=== PATIENT | female | born 1945 | race Caucasian/White ===

== ENCOUNTER → 2016-12-10 | Outpatient (CLI) | payer BC ==
[~2016-12-10] MED LIST: ASPCH81 PO; ATEN-173 PO; BRIN1SUS OP; CALC600T9 PO; CHOL200010 PO; CHOL4POW6 PO; CRAN500C2 PO; CRS/10 PO; HYDR25TA4 PO; LEVO50TA PO; NORT10CA3 PO; OMEP20CA9 PO
--- NOTE | 2016-12-10 14:27 | MAMMOGRAPHY REPORT ---
BILATERAL DIGITAL SCREENING MAMMOGRAM WITH CAD: 12/10/2016 CLINICAL HISTORY: Routine screening. Patient has no complaints. TECHNIQUE: Bilateral CC and MLO views were obtained. Current study was also evaluated with a Comput er Aided Detection (CAD) system. COMPARISON: Comparison is made to exams dated: 11/29/2015 mammogram, 11/23/2013 mammogram, 11/24/2014 mammogram, 11/21/2012 mammogram, 11/21/2011 mammogram, and 11/20/2010 mammogram - [facility]ter. BREAST COMPOSITION: The tissue of both breasts is heterogeneously dense, which may obscure small ma sses. FINDINGS: There are benign rim calcifications, coarse popcorn calcifications and round benign-appear ing micro-calcifications scattered bilaterally. A 12 m focal asymmetry in the 11:00 posterior left breast is stable on prior mammograms dating back to at least 11/20/2010, therefore likely benign. N o new suspicious mass, architectural distortion or cluster of microcalcifications is seen. IMPRESSION: ACR BI-RADS CATEGORY 1: NEGATIVE There is no mammographic evidence of malignancy. A 1 year screening mammogram is recommended. The p atient will receive written notification of the results. Approximately 10% of breast cancers are not detected with mammography. A negative mammographic repor t should not delay biopsy if a clinically suggestive mass is present. Vickie Haley M.D. ay/:12/10/2016 13:26:12 Sales Force Administrator: Mello WELCH(Leeanne)(Ayde), [facility] letter sent: Normal 1/2 BI-RADS Code: ACR BI-RADS Category 1: Negative
== END | disposition home or self-care (01) ==
LOC: C.MAMM 09:50
PROVIDERS: ATTEND Obstetrics & Gynecology
DX: Z12.31 Encounter for screening mammogram for malignant neoplasm of breast (principal)

== ENCOUNTER → 2017-02-22 | Outpatient (CLI) | payer BC ==
[2017-02-22 12:07] LABS: ALT/SGPT 27 U/L (12-78); AST/SGOT 20 U/L (15-37); BLOOD UREA NITROGEN 24 mg/dl (7-18); BUN/CREATININE RATIO 16.8 (10-20); CALCIUM 9.2 mg/dl (8.5-10.1); CARBON DIOXIDE 30 mmol/L (21-32); CHLORIDE 108 mmol/L (98-107); GLUCOSE 96 mg/dl (70-99); POTASSIUM 4.5 mmol/L (3.5-5.1); SODIUM 145 mmol/L (136-145)
[2017-02-22 12:10] LABS: ALKALINE PHOSPHATASE 57 U/L (45-117); CHOLESTEROL 211 mg/dl (0-200); CHOLESTEROL/HDL RATIO 6.2; HDL CHOLESTEROL 34 mg/dl; LDL CHOLESTEROL CALCULATED 144 mg/dl; TRIGLYCERIDES 167 mg/dl (0-150); VERY LOW DENSITY LIPOPROT CALC 33 mg/dl
[2017-02-22 12:14] LABS: ESTIMATED AVERAGE GLUCOSE 128 mg/dl; HA1C FLAG Normal (Normal)
== END | disposition home or self-care (01) ==
LOC: C.LAB 09:36
PROVIDERS: ATTEND Nurse Practitioner Family
DX: K21.9 Gastro-esophageal reflux disease without esophagitis (principal); E78.00 Pure hypercholesterolemia, unspecified; I10 Essential (primary) hypertension; E03.9 Hypothyroidism, unspecified; F32.9 Major depressive disorder, single episode, unspecified; R73.9 Hyperglycemia, unspecified

== ENCOUNTER → 2017-03-01 | Outpatient (CLI) | payer BC ==
[2017-03-01 12:44] LABS: BLOOD UREA NITROGEN 15 mg/dl (7-18); BUN/CREATININE RATIO 11.7 (10-20); CALCIUM 9.2 mg/dl (8.5-10.1); CARBON DIOXIDE 27 mmol/L (21-32); CHLORIDE 108 mmol/L (98-107); GLUCOSE 94 mg/dl (70-99); POTASSIUM 4.4 mmol/L (3.5-5.1); SODIUM 142 mmol/L (136-145)
[2017-03-01 12:45] LABS: PHOSPHORUS 2.9 mg/dl (2.5-4.9)
== END | disposition home or self-care (01) ==
LOC: C.LAB 10:07
PROVIDERS: ATTEND Nurse Practitioner Family
DX: R79.89 Other specified abnormal findings of blood chemistry (principal)

== ENCOUNTER → 2017-04-10 | Outpatient (CLI) | payer BC ==
[2017-04-10 17:26] LABS: BLOOD UREA NITROGEN 19 mg/dl (7-18); BUN/CREATININE RATIO 15.7 (10-20); CALCIUM 8.9 mg/dl (8.5-10.1); CARBON DIOXIDE 29 mmol/L (21-32); CHLORIDE 110 mmol/L (98-107); GLUCOSE 109 mg/dl (70-99); PHOSPHORUS 3.5 mg/dl (2.5-4.9); POTASSIUM 3.9 mmol/L (3.5-5.1); SODIUM 143 mmol/L (136-145)
== END | disposition home or self-care (01) ==
LOC: C.LABPBG 14:26
PROVIDERS: ATTEND Nurse Practitioner Family
DX: R79.89 Other specified abnormal findings of blood chemistry (principal)

== ENCOUNTER → 2017-06-12 | Outpatient (CLI) | payer BC ==
--- NOTE | 2017-06-12 16:01 | DIAGNOSTIC IMAGING REPORT ---
CHEST 2 VIEWS ROUTINE CLINICAL HISTORY: R05 Cough COMPARISON STUDY: 02/02/2015 FINDINGS: The cardiac and mediastinal contours are normal. There is no evidence of focal pulmonary consolidation. There is no evidence of failure. No pleural effusions are visualized.[ There is minor right basilar subsegmental atelectasis IMPRESSION: No active disease in the chest. Electronically signed by: Jack Meyers M.D. 06/12/2017 3:59 PM Dictated Date/Time: 06/12/2017 3:59 PM
== END | disposition home or self-care (01) ==
LOC: C.RAD 15:06
PROVIDERS: ATTEND Nurse Practitioner Family
DX: R05 Cough (principal)

== ENCOUNTER → 2017-08-27 | Outpatient (CLI) | payer BC ==
[2017-08-27 11:55] LABS: BASO % 0.8 %; BASO ABS # 0.05 K/uL (0-0.2); COMPLETE YES; EOS % 3.5 %; HEMATOCRIT 44.4 % (37-47); IG% 0.2 %; LYMPH % 38.5 %; LYMPH ABS # 2.31 K/uL (1.2-3.4); MEAN CELL VOLUME 90.8 fL (80-100); MEAN CORPUSCULAR HEMOGLOBIN 29.7 pg (25-34); MEAN CORPUSCULAR HGB CONC 32.7 g/dl (32-36); MEAN PLATELET VOLUME 11.3 fL (7.4-10.4); MONO % 7.2 %; NEUT % 49.8 %; PLATELET COUNT 280 K/uL (130-400); RED BLOOD COUNT 4.89 M/uL (4.2-5.4)
[2017-08-27 12:07] LABS: ALT/SGPT 32 U/L (12-78); BLOOD UREA NITROGEN 23 mg/dl (7-18); CARBON DIOXIDE 28 mmol/L (21-32); CHLORIDE 106 mmol/L (98-107); CHOLESTEROL 166 mg/dl (0-200); CREATININE 1.13 mg/dl (0.60-1.20); GLUCOSE 109 mg/dl (70-99); POTASSIUM 3.4 mmol/L (3.5-5.1); SODIUM 141 mmol/L (136-145); TRIGLYCERIDES 133 mg/dl (0-150); VERY LOW DENSITY LIPOPROT CALC 27 mg/dl
[2017-08-27 12:18] LABS: ALKALINE PHOSPHATASE 55 U/L (45-117); AST/SGOT 20 U/L (15-37); CHOLESTEROL/HDL RATIO 3.5; HDL CHOLESTEROL 48 mg/dl; LDL CHOLESTEROL CALCULATED 91 mg/dl
== END | disposition home or self-care (01) ==
LOC: C.LABPBG 10:17
PROVIDERS: ATTEND Nurse Practitioner Family
DX: E78.00 Pure hypercholesterolemia, unspecified (principal); I10 Essential (primary) hypertension; R73.9 Hyperglycemia, unspecified; E03.9 Hypothyroidism, unspecified

== ENCOUNTER → 2017-10-07 | Outpatient (CLI) | payer BC ==
[~2017-10-07] MED LIST changes: -ASPCH81 PO; +ASPI81TA28 PO; +ATOR-22 PO; +CHOL1000 PO; -CHOL4POW6 PO; +CHOLPOW PO; -CRS/10 PO; +FENO145T26 PO; -LEVO50TA PO; +LEVO75TA5 PO; +PRED10TA PO; +ROSUVASTATIN PO
== END | disposition home or self-care (01) ==
LOC: C.LABPBG 08:54
PROVIDERS: ATTEND Nurse Practitioner Family
DX: E03.9 Hypothyroidism, unspecified (principal)

== ENCOUNTER → 2017-10-08 | Outpatient (CLI) | payer BC | END | disposition home or self-care (01) | LOC: C.LABSPEC 17:46 | PROVIDERS: ATTEND Nurse Practitioner Family | DX: R39.9 Unspecified symptoms and signs involving the genitourinary system (principal) ==

== ENCOUNTER 2017-10-31 10:38 | Inpatient (IN) | payer BC, OTHER ==
[2017-10-04 13:32] VITALS: Ht 162.6 cm; Wt 94.6 kg
--- NOTE | 2017-10-04 14:15 | PAT Medication Instructions ---
Service Date Oct 04, 2017. Current Home Medication List Aspirin (Aspirin Ec), 81 MG PO QPM Atenolol (Tenormin), 25 MG PO QAM Atorvastatin (Lipitor), 20 MG PO Q2D Brinzolamide Oph (Azopt Oph), 1 DROP OP BID Calcium Carbonate-Vitamin D (Calcium + D), 1 TAB PO QAM Cholecalciferol (Vitamin D), 2,000 UNITS PO QAM Cholecalciferol (Vitamin D3), 1 TAB PO QAM Cholestyramine (Bulk) (Cholestyramine), 1 DOSE PO QAM Cranberry (Vaccinium Macrocarp (Cranberry), 500 MG PO QAM Fenofibrate (Tricor ), 145 MG PO QPM Hydrochlorothiazide (Hctz), 12.5 MG PO QAM Levothyroxine Sodium (Levothyroxine Sodium), 1 TAB PO QAM Nortriptyline Hcl (Pamelor), 10 MG PO BID Omeprazole (Prilosec), 20 MG PO HS Prednisone (Prednisone), 10 MG PO QAM [Rosuvastatin], 1 TAB PO QPM Medication Instructions For Your Scheduled Surgery -Continue as directed: Prednisone (Prednisone), 10 MG PO QAM - Hold the following medications THE NIGHT BEFORE surgery: Fenofibrate (Tricor ), 145 MG PO QPM - Hold the following medications the morning of surgery: Hydrochlorothiazide (Hctz), 12.5 MG PO QAM Cranberry (Vaccinium Macrocarp (Cranberry), 500 MG PO QAM Calcium Carbonate-Vitamin D (Calcium + D), 1 TAB PO QAM Cholecalciferol (Vitamin D), 2,000 UNITS PO QAM Cholecalciferol (Vitamin D3), 1 TAB PO QAM Cholestyramine (Bulk) (Cholestyramine), 1 DOSE PO QAM - Take the following medications the morning of surgery with a sip of water: Levothyroxine Sodium (Levothyroxine Sodium), 1 TAB PO QAM Atenolol (Tenormin), 25 MG PO QAM Nortriptyline Hcl (Pamelor), 10 MG PO BID Brinzolamide Oph (Azopt Oph), 1 DROP OP BID (BRING THEM WITH YOU TO THE HOSPITAL ) - Take the following medications as scheduled the night before surgery: [Rosuvastatin], 1 TAB PO QPM Omeprazole (Prilosec), 20 MG PO HS Aspirin (Aspirin Ec), 81 MG PO QPM Nortriptyline Hcl (Pamelor), 10 MG PO BID Brinzolamide Oph (Azopt Oph), 1 DROP OP BID Atorvastatin (Lipitor), 20 MG PO Q2D If you have any questions please call us at [phone] or [phone] or [phone]
--- NOTE | 2017-10-04 15:10 | DIAGNOSTIC IMAGING REPORT ---
CHEST 2 VIEWS ROUTINE HISTORY: Preop. COMPARISON: Chest 06/12/2017. FINDINGS: Stable linear density within the right lung base consistent with subsegmental atelectasis. Mild elevation of the right hemidiaphragm, unchanged. The lungs are otherwise clear. The heart is normal in size. No pleural effusions. No pneumothorax. Cholecystectomy. IMPRESSION: No significant change compared to the prior study. No acute process. Electronically signed by: Derek Ordoñez M.D. 10/04/2017 3:09 PM Dictated Date/Time: 10/04/2017 3:05 PM
[2017-10-04 15:27] LABS: PTT PATIENT 20.8 SECONDS (21.0-31.0)
[2017-10-04 16:19] LABS: ALBUMIN 3.5 gm/dl (3.4-5.0); CALCIUM 9.4 mg/dl (8.5-10.1); CREATININE 1.18 mg/dl (0.60-1.20); POTASSIUM 4.7 mmol/L (3.5-5.1)
[2017-10-05 07:07] LABS: HEMOGLOBIN A1C 6.2 % (4.5-5.6)
--- NOTE | 2017-10-30 09:34 | HISTORY & PHYSICAL EXAMINATION ---
DATE OF ADMISSION: 10/31/2017 CHIEF COMPLAINT: Right knee pain. HISTORY OF PRESENT ILLNESS: The patient is a 72-year-old female with known osteoarthritis about her right knee. She has had a previous corticosteroid injection with short term relief. She had a previous left total knee arthroplasty approximately 10 years ago with good success. Due to ongoing pain and disability of the right knee, she now desires to proceed with right total knee arthroplasty. PAST MEDICAL HISTORY: Hypertension, hypercholesterolemia, depression, osteoarthritis and acid reflux. PAST SURGICAL HISTORY: Left total knee as above, rotator cuff surgery. MEDICATIONS: Nortriptyline 10 mg twice daily, fenofibrate 145 mg daily, atenolol 25 mg daily, omeprazole 20 mg daily, hydrochlorothiazide 25 mg daily, aspirin 81 mg daily, cholestyramine once daily, Levoxyl 50 mcg daily, calcium 600 mg with vitamin D. ALLERGIES: DEMEROL. SOCIAL HISTORY AND REVIEW OF SYSTEMS: Noncontributory. PHYSICAL EXAMINATION: GENERAL: Well-nourished, well-developed elderly female who appears her stated age. HEENT: Normocephalic, atraumatic, extraocular movements intact, oropharynx pink and moist. NECK: Supple without adenopathy. LUNGS: Clear to auscultation bilaterally. HEART: Regular rate and rhythm. ABDOMEN: Soft, nontender, nondistended. EXTREMITIES: The upper extremities are within normal limits. The right knee is in neutral alignment. She complains primarily of medial compartment pain. Her range of motion from 0 to 125 degrees. X-RAYS: X-rays were reviewed. She has a neutrally though slightly varus aligned knee. She has [id number] arthritis of the medial compartment with complete loss of the joint space. There is medial joint line osteophytes. ASSESSMENT: Right knee degenerative joint disease. PLAN: Risks versus benefits were discussed, consent was obtained. The patient's primary care physician is Merrill Martinez. We will proceed with right total knee arthroplasty as indicated.
[~2017-10-31] VITALS: Ht 162.6 cm; Wt 94.6 kg
[2017-10-31] VITALS (8 sets, daily range): BP systolic 134–187; BP diastolic 62–85; PULSE 76–81; TEMP 36.5–36.9; O2SAT 93–99
[2017-10-31] MEDS: TRANEXAMIC ACID INJ 1,000 MG x 2 Bags IV SCH ×4 (06:00→06:30)
--- NOTE | 2017-10-31 10:12 | History & Physical Bridge Note ---
H&P Re-Evaluation Bridge Note: I have examined the patient, reviewed the History & Physical and in the interval since the performance of the History & Physical I have noted the following changes of clinical significance: No changes noted
[~2017-10-31 10:38] MED LIST changes: +ACETAMINOPHEN 500 MG TAB PO SCH; +ATROPINE SULFATE 0.1 MG/ML 5ML SYR IV PRN; +BUPIVACAINE 0.5 % 5 MG/1 ML PF 10ML VIAL ONE; +CEFAZOLIN 2000MG IV PUSH 15 ML IV SCH; +CeleBREX 200 MG CAP PO SCH; +DEXAMETHASONE 4 MG TAB PO SCH; +EpHEDrine SULFATE INJ 50 MG/ML AMP IV PRN; +FAMOTIDINE 20 MG TAB PO SCH; +GABAPENTIN 300 MG CAP PO SCH; +HYDROmorphone INJ 2 MG/ML SYR/VIAL IV PRN; +LACTATED RINGER'S 1000ML 1,000 ML IV SCH; +LACTATED RINGER'S 1000ML 500 ML IV SCH; +LACTATED RINGER'S 1000ML IV SCH; +METOCLOPRAMIDE HCL 10 MG TAB PO SCH; +ONDANSETRON INJ 2 MG/ML 2 ML VIAL IV PRN; +OXYCODONE HCL 10 MG TABCR (OXYCONTIN) PO SCH; +PATIENT'S ALLERGY INFO NEEDS ENTERED SCH; +PHENYLEPHRINE 100MCG/ML 5ML SYR IV PRN; +ROPIVACAINE 0.5% 5 MG/ML 30 ML VIAL ONE; +ROPIVACAINE 5MG/ML 30 ML 150 MG, BUPIVACAINE 0.5% MPF INJ 30 ML, EpINEphrine HCL INJ 0.... INFIL SCH
[2017-10-31] MEDS ORDERED: LIDOCAINE HCL 2% 2 ML VIAL (20MG/ML) ONE (11:00)
[2017-10-31] MEDS ORDERED: DEXAMETHASONE SOD INJ 4 MG/ML VIAL ONE (11:00)
[2017-10-31] MEDS ORDERED: ONDANSETRON INJ 2 MG/ML 2 ML VIAL ONE (11:00)
[2017-10-31] MEDS ORDERED: PROPOFOL IV EMULSION 10 MG/ML 20 ML VIAL IV ONE (11:00)
[2017-10-31] MEDS ORDERED: MIDAZOLAM HCL 1 MG/ML 2ML VIAL ONE ×2 (11:00→11:59)
[2017-10-31] MEDS ORDERED: FENTANYL CITRATE INJ 50 MCG/1 ML 2 ML VIAL ONE (11:00)
[2017-10-31] MEDS ORDERED: BACITRACIN 50000 UNIT VIAL ONE (11:54)
[2017-10-31] MEDS ORDERED: ORTHO JOINT ANESTHETIC ONE (11:54)
[2017-10-31] MEDS ORDERED: POVIDONE-IODINE OP SOLN 30 ML BTL ONE (11:54)
--- NOTE | 2017-10-31 13:26 | [facility] Post Operative Brief Note ---
Immediate Operative Summary Operative Date Oct 31, 2017. Pre-Operative Diagnosis Degenerative Joint Disease Right knee Post-Operative Diagnosis Degenerative Joint Disease Right knee Procedure(s) Performed Right Total Knee Arthroplasty Surgeon Dr Roman Underground Electrician Surgeon(s) Jas Acosta PA-C Estimated Blood Loss 10cc Findings Consistent with Post-Op Diagnosis Specimens As Per Surgeon A. Right Knee Bone and Tissue Anesthesia Type MAC Spinal Regional Complication(s) none Disposition Accompanied Pt To Recover: no Disposition: Recovery Room / PACU
--- NOTE | 2017-10-31 13:36 | OPERATIVE REPORT ---
DATE OF OPERATION: 10/31/2017 PREOPERATIVE DIAGNOSIS: Osteoarthritis, right knee. POSTOPERATIVE DIAGNOSIS: Osteoarthritis, right knee. PROCEDURE: Right total knee arthroplasty. SURGEON: Dr. Roman. CURRICULUM SUPERVISOR: SOPHIA Shelton ANESTHESIA: Spinal. COMPLICATIONS: None. IMPLANTS USED: Femoral size 4, tibia size 3, tibial poly 13, and patella size 31. OPERATION AND FINDINGS: Following induction of spinal anesthesia, the patient's right leg was prepped and draped in the usual sterile manner. Limb was exsanguinated with an Esmarch bandage and tourniquet was inflated to 350 mmHg. A longitudinal incision was made anteriorly. Subcutaneous tissue was sharply dissected. Electrocautery was used for hemostasis. Prepatellar bursa was incised and median parapatellar incision was performed. Patella was everted and the knee was flexed. Fat pad was removed to aid in visualization and the anterior and posterior cruciate ligaments were removed. The medial face of the tibia was cleared of soft tissue first with a Bovie and a Peña elevator. This tissue was retracted posteriorly using a blunt Hohmann. A Nj retractor was used to expose the synovium above on the anterior aspect of the femur and this was removed down to bone. The PSI guide was placed on the distal femur and two pins were placed anteriorly and kept in position and two additional pins were placed distally and removed. The distal femoral cutting block was placed in position and the distal femoral cut was used in the +0 setting. Next, the cutting block was removed and the femoral 4 block was placed in the distal end of the femur. Care was taken to ensure appropriate external rotation and feeler gauge was used to ensure no notching would occur. The femoral block was centered on the distal femur and in the medial and lateral direction and was fixed using two bone screws. The gold pins were then removed. The oscillating saw was used to create the bone cuts and the distal femoral cutting block was removed and the reciprocating saw was used to further trim the femoral cuts as well as a deep in the area for the trochlear groove. Next, posterior condyle remnants were removed. Following this, a meniscal clamp and knife were utilized to remove the anterior portion of both medial and lateral meniscus. The proximal tibia PSI guide was placed into position and the proximal tibial cutting guide was screwed into position. The extra medullary alignment guide was utilized to ensure appropriate alignment. The proximal tibia was cut and the proximal tibial cutting block was removed and this bone fragment was removed. The appropriate guide was used to perform the notch cut on the distal femur and a lamina correspondence renew clerk and a cochlear knife were utilized to finish both medial and lateral meniscectomies to remove any remnants of the posterior or anterior cruciate ligaments. Following this, the distal femoral component was impacted into position and blunt Yessy was used to sublux the tibia anteriorly. The proximal tibia was sized and a 3 tibial tray was chosen as the size to be used. This was put into position and appropriate external rotation and a double check with extramedullary alignment guide was performed. The canal for the tibial stem was prepared first with a 17 mm drill and then the punch and a mallet and the trial tibial poly was placed. A 13 was chosen the size to be used. It was brought to extension and the patella was prepared with the patellar reamer. A 31 component was chosen the size to be used. The trial component was placed and knee was taken through a full range of motion and there was found to be no lateral subluxation of the tibia. No lateral release was required. The trials were all removed. The final components were obtained and assembled. Cement was mixed. The knee was thoroughly irrigated and the ortho mix was injected about the knee joint. The final components were cemented into position. After thoroughly suctioning and drying the bone ends, all excess cement was removed. The knee was held in extension while the cement hardened. The wound was irrigated and closed over a Hemovac drain. #1 Vicryl was used to close the extensor mechanism. Subcutaneous tissues closed using 0 Dexon. Skin was closed with bethany. Sterile dressing of Adaptic, 4 x 4's, sterile Webril, and Kyle was applied. The patient tolerated the procedure well. Due to the complex nature of the procedure, the entire surgery was performed with the operational assistance of SOPHIA Shelton. The sales assistants and salespersons, under direct supervision, was involved in the actual performance of all aspects of the surgical procedure including hemostasis, tissue retraction and incision, instrument management, patient positioning, and wound closure. DISPOSITION: Recovery room, stable. I attest to the content of the Intraoperative Record and any orders documented therein. Any exception s are noted below.
[2017-10-31] MEDS ORDERED: CEFAZOLIN IV 2,000 MG in DEXTROSE 5% 50ML 50 ML IV SCH (14:15)
[2017-10-31] MEDS ORDERED: MAGNESIUM HYDROXIDE SUSP 30 ML UDC PO PRN (14:15)
[2017-10-31] MEDS ORDERED: ONDANSETRON INJ 2 MG/ML 2 ML VIAL IV PRN (14:15)
[2017-10-31] MEDS ORDERED: ALUMINUM/MAGNESIUM/SIMETH (MAALOX MAX) 30 ML UDC PO PRN (14:15)
[2017-10-31] MEDS ORDERED: OXYCODONE HCL IR 5 MG TAB (IMMEDIATE RELEASE) PO PRN (14:15)
[2017-10-31] MEDS ORDERED: MoRPHine SULFATE 2 MG/ML CARP IV PRN (14:15)
--- NOTE | 2017-10-31 14:43 | DIAGNOSTIC IMAGING REPORT ---
R KNEE 1 OR 2 VIEWS ROUTINE CLINICAL HISTORY: 72 years-old Female presenting with AP/LATERAL IN PACU RIGHT KNEE. TECHNIQUE: Frontal and lateral views of the right knee were obtained. COMPARISON: None. FINDINGS: Postsurgical changes of total right knee arthroplasty with patellar resurfacing. Intra-articular and subcutaneous emphysema. Surgical drain in place. Surgical bethany noted. No malalignment. Old screw tracks suggested in the medial tibial plateau. No periprosthetic fracture. IMPRESSION: Expected post surgical appearance of the total right knee arthroplasty with patellar resurfacing. Electronically signed by: Eduardo Tillman M.D. 10/31/2017 2:42 PM Dictated Date/Time: 10/31/2017 2:41 PM
--- NOTE | 2017-10-31 15:18 | Anesthesiology Progress Note ---
Anesthesia Post Op Note Date & Time Oct 31, 2017 at 15:18 Vital Signs Pain Intensity: 0 Vital Signs Past 12 Hours Date Time Temp Pulse Resp B/P (MAP) Pulse Ox O2 Delivery O2 Flow Rate FiO2 10/31/17 14:44 75 18 10/31/17 14:44 75 18 95 10/31/17 14:41 139/65 10/31/17 14:39 74 22 10/31/17 14:39 74 22 97 10/31/17 14:36 146/82 10/31/17 14:34 73 14 96 10/31/17 14:34 74 14 10/31/17 14:31 135/81 10/31/17 14:29 74 24 96 10/31/17 14:29 74 24 10/31/17 14:26 141/77 10/31/17 14:24 74 21 10/31/17 14:24 74 21 96 10/31/17 14:23 75 23 91 10/31/17 14:23 75 23 10/31/17 14:23 75 23 10/31/17 14:23 75 23 91 10/31/17 14:21 132/81 10/31/17 14:21 132/81 10/31/17 14:18 76 20 10/31/17 14:18 76 20 10/31/17 14:18 76 20 93 10/31/17 14:18 76 20 93 10/31/17 14:16 131/69 10/31/17 14:16 131/69 10/31/17 14:13 76 27 93 10/31/17 14:13 76 27 10/31/17 14:13 76 27 93 10/31/17 14:13 76 27 10/31/17 14:11 131/76 10/31/17 14:11 131/76 10/31/17 14:08 77 21 10/31/17 14:08 77 21 95 10/31/17 14:08 77 21 95 10/31/17 14:08 36.2 78 21 114/81 (98) 96 Room Air 10/31/17 14:08 77 21 10/31/17 11:07 36.8 76 18 187/80 99 Room Air Notes Mental Status: alert / awake / arousable, participated in evaluation Pt Amnestic to Procedure: Yes Nausea / Vomiting: adequately controlled Pain: adequately controlled Airway Patency, RR, SpO2: stable & adequate BP & HR: stable & adequate Hydration State: stable & adequate Anesthetic Complications: no major complications apparent
[2017-10-31] MEDS: D5W AND 1/2NSS + 20MEQ KCL 1,000 ML IV SCH (18:18)
[2017-10-31] MEDS: FERROUS GLUCONATE 324 MG TAB PO SCH (18:19)
[2017-10-31] MEDS: SENNA 8.6 MG TAB PO SCH (21:00)
[2017-10-31] MEDS ORDERED: ROSUVASTATIN PO SCH (21:00)
[2017-10-31] MEDS: CEFAZOLIN IV 2,000 MG in SYRINGE 0 ML IV SCH (21:27)
[2017-10-31] MEDS: BRINZOLAMIDE (AZOPT) OPS 10 ML BTL OP SCH (21:33)
[2017-10-31] MEDS: ACETAMINOPHEN 500 MG TAB PO SCH (21:34)
[2017-10-31] MEDS: FENOFIBRATE 145 MG TAB PO SCH (21:34)
[2017-10-31] MEDS: NORTRIPTYLINE HCL 10 MG CAP PO SCH (21:38)
[2017-10-31] MEDS: DOCUSATE SODIUM 100 MG CAP PO SCH (21:38)
[2017-10-31] MEDS: ASPIRIN 81 MG ECTAB PO SCH (21:39)
[2017-10-31] MEDS: CeleBREX 200 MG CAP PO SCH (21:39)
[2017-11-01] VITALS (7 sets, daily range): BP systolic 117–154; BP diastolic 68–84; PULSE 71–74; TEMP 36.2–37; O2SAT 92–97
[2017-11-01] MEDS: D5W AND 1/2NSS + 20MEQ KCL 1,000 ML IV SCH (04:06)
[2017-11-01] MEDS: CEFAZOLIN IV 2,000 MG in SYRINGE 0 ML IV SCH (04:07)
[2017-11-01] MEDS: ACETAMINOPHEN 500 MG TAB PO SCH ×3 (05:15→21:28)
[2017-11-01] MEDS: LEVOTHYROXINE 75 MCG TAB PO SCH (05:15)
[2017-11-01 06:14] LABS: HEMATOCRIT 38.3 % (37-47); HEMOGLOBIN 12.9 g/dL (12.0-16.0); MEAN CELL VOLUME 88.9 fL (80-100); MEAN CORPUSCULAR HEMOGLOBIN 29.9 pg (25-34); MEAN CORPUSCULAR HGB CONC 33.7 g/dl (32-36); MEAN PLATELET VOLUME 10.6 fL (7.4-10.4); PLATELET COUNT 290 K/uL (130-400); RED CELL DISTRIBUTION WIDTH CV 14.2 % (11.5-14.5); RED CELL DISTRIBUTION WIDTH SD 46.1 fL (36.4-46.3); WHITE BLOOD COUNT 16.81 K/uL (4.8-10.8)
[2017-11-01 06:46] LABS: CALCIUM 8.4 mg/dl (8.5-10.1); CREATININE 1.24 mg/dl (0.60-1.20); POTASSIUM 4.6 mmol/L (3.5-5.1)
--- NOTE | 2017-11-01 07:50 | Orthopedic Progress Note ---
Orthopedic Progress Note Date of Service Nov 01, 2017. Subjective Post OP Day: 1 Reports: feeling well Objective N/V intact (Mild footdrop noted), dressing C/D/I (Hemovac in place, prevena in place) Date Time Temp Pulse Resp B/P (MAP) Pulse Ox O2 Delivery O2 Flow Rate FiO2 11/01/17 03:50 36.9 73 16 121/75 (90) 94 Room Air 10/31/17 23:19 Room Air 10/31/17 22:58 36.9 78 18 135/73 (93) 93 Room Air 10/31/17 19:00 36.8 80 18 134/62 (86) 96 Nasal Cannula 2.0 10/31/17 18:00 36.7 81 18 144/82 (102) 96 Nasal Cannula 2.0 10/31/17 17:00 96 Nasal Cannula 2.0 10/31/17 17:00 36.6 79 20 147/81 (103) 96 Nasal Cannula 2.0 10/31/17 16:30 36.5 76 18 152/85 (107) 97 Nasal Cannula 2.0 10/31/17 16:02 97 Nasal Cannula 2.0 10/31/17 16:00 95 Nasal Cannula 2.0 10/31/17 15:59 36.8 80 19 151/84 (106) 94 Nasal Cannula 2.0 10/31/17 15:41 148/72 10/31/17 15:40 78 18 94 10/31/17 15:40 78 18 10/31/17 15:38 36.4 79 19 148/72 (89) 95 Nasal Cannula 2 10/31/17 15:36 147/77 10/31/17 15:35 80 16 10/31/17 15:35 80 16 94 10/31/17 15:31 136/81 10/31/17 15:30 79 18 10/31/17 15:30 78 18 93 10/31/17 15:26 153/94 10/31/17 15:25 80 20 95 10/31/17 15:25 80 20 10/31/17 15:21 143/82 10/31/17 15:20 77 21 10/31/17 15:20 76 21 95 10/31/17 15:16 132/93 10/31/17 15:15 78 19 2/15/18 15:15 78 19 94 2/15/18 15:11 144/77 2/15/18 15:10 77 19 2/15/18 15:10 77 19 95 2/15/18 15:06 127/72 2/15/18 15:05 77 20 95 2/15/18 15:05 77 20 2/15/18 15:01 138/73 2/15/18 15:00 76 19 2/15/18 15:00 76 19 94 2/15/18 14:56 137/77 2/15/18 14:55 75 18 94 2/15/18 14:55 75 18 2/15/18 14:51 143/68 2/15/18 14:50 75 18 94 2/15/18 14:50 75 18 2/15/18 14:46 136/83 2/15/18 14:45 75 22 95 2/15/18 14:45 75 22 2/15/18 14:44 75 18 2/15/18 14:44 75 18 95 2/15/18 14:41 139/65 2/15/18 14:39 74 22 2/15/18 14:39 74 22 97 2/15/18 14:36 146/82 2/15/18 14:34 73 14 96 2/15/18 14:34 74 14 2/15/18 14:31 135/81 2/15/18 14:29 74 24 96 2/15/18 14:29 74 24 2/15/18 14:26 141/77 2/15/18 14:24 74 21 2/15/18 14:24 74 21 96 2/15/18 14:23 75 23 91 2/15/18 14:23 75 23 2/15/18 14:23 75 23 2/15/18 14:23 75 23 91 2/15/18 14:21 132/81 2/15/18 14:21 132/81 2/15/18 14:18 76 20 2/15/18 14:18 76 20 2/15/18 14:18 76 20 93 2/15/18 14:18 76 20 93 2/15/18 14:16 131/69 2/15/18 14:16 131/69 2/15/18 14:13 76 27 93 2/15/18 14:13 76 27 2/15/18 14:13 76 27 93 10/31/17 14:13 76 27 10/31/17 14:11 131/76 10/31/17 14:11 131/76 10/31/17 14:08 77 21 10/31/17 14:08 77 21 95 10/31/17 14:08 77 21 95 10/31/17 14:08 36.2 78 21 114/81 (98) 96 Room Air 10/31/17 14:08 77 21 10/31/17 11:07 36.8 76 18 187/80 99 Room Air Laboratory Results 24 Hours: Test 11/01/17 05:48 Hematocrit 38.3 % Hemoglobin 12.9 g/dL Assessment & Plan Assessment: 72 yo female stable POD #1 s/p right TKA, mild footdrop Plan: 1. Med management 2. DVT prophylaxis- ASA, SCDs 3. PT/OT 4. D/C planning- home w/ HH
--- NOTE | 2017-11-01 07:54 | Anesthesiology Progress Note ---
Anesthesia Post Op Note Date & Time Nov 01, 2017 at 07:53 Vital Signs Pain Intensity: 2 Vital Signs Past 12 Hours Date Time Temp Pulse Resp B/P (MAP) Pulse Ox O2 Delivery O2 Flow Rate FiO2 11/01/17 03:50 36.9 73 16 121/75 (90) 94 Room Air 10/31/17 23:19 Room Air 10/31/17 22:58 36.9 78 18 135/73 (93) 93 Room Air Notes Mental Status: alert / awake / arousable Pt Amnestic to Procedure: Yes Nausea / Vomiting: adequately controlled Pain: adequately controlled Airway Patency, RR, SpO2: stable & adequate BP & HR: stable & adequate Hydration State: stable & adequate Neuraxial Anesthesia: sensory block resolved Anesthetic Complications: no major complications apparent
--- NOTE | 2017-11-01 07:56 | Discharge Instructions ---
Discharge Instructions Date of Service Nov 01, 2017. Admission Reason for Admission: Osteoarthritis Right Knee Discharge Discharge Diagnosis / Problem: Right knee arthritis Discharge Goals Goal(s): Decrease discomfort, Improve function Activity Recommendations Activity Limitations: as noted below Weightbearing Status: Right weightbearing (as tolerated) . Instructions / Follow-Up Instructions / Follow-Up ACTIVITY RECOMMENDATIONS: SELF CARE INSTRUCTIONS AFTER TOTAL KNEE REPLACEMENT A. You may need to continue a physical therapy program after discharge from the hospital. There are several options available to you. Your doctor will assist you in selecting the best one for you. 1. An out-patient facility 2 to 3 times a week for therapy or home therapy. 2. Continue working on all exercises taught to you in the hospital. Your goals should be to increase bending of your knee to 90 degrees and beyond and to fully straighten your knee. B. You may progress at your own pace from walking with a walker or crutches to a cane; then to no assistive devices. C. Make walking a part of your daily routine. Be up as much as comfortable with rest periods throughout the day. Rest with leg elevation is very important. Use the ice wrap frequently for the first 3-4 weeks. D. There are no restrictions on activities. You may ride in a car, shop, participate in spud sorter and all social activities. E. Wear the long elastic stockings (BETH hose) 20 hours a day for 2 weeks after surgery. They can be removed several times a day for laundering and for a bath. F. You may shower, no tub baths until cleared by your doctor. SPECIAL CARE INSTRUCTIONS: VERY IMPORTANT TO READ AND REVIEW A. There are a few signs you need to watch for after you are home. Call [facility] if you notice any of the followin. Increased severe knee pain. Some pain is expected especially when you exercise. 2. Increased swelling in your leg or knee; pain or swelling of the calf muscle in either lower leg. 3. Any fluid drainage from the incision. 4. Shortness of breath or chest pain. B. Please call [facility] at if you have any concerns or questions about your operation or recovery. The doctor or his nurse will return your call promptly. C. You must take antibiotics before dental work, bladder, bowel or other surgery. Your doctor will provide you with a permanent care to carry describing this precaution. IMPORTANT: * REMEMBER TO TAKE ASPIRIN, 81 MG, TWICE DAILY FOR 4 WEEKS UNLESS OTHERWISE DIRECTED. THIS IS YOUR BLOOD THINNER. * HIGH RISK PATIENTS MAY BE PRESCRIBED A STRONGER BLOOD THINNER. THIS WILL BE PROVIDED AT DISCHARGE. * CALL IF INCREASED PAIN, REDNESS, DRAINAGE OR FEVER GREATER THAT 101. * WEAR BETH HOSE 20 HOURS PER DAY FOR 2 WEEKS. * Prevena- This is a large suction dressing covering your incision. This will help pull any excess drainage from the wound and allow your incision to heal properly. You may shower with this if you can keep the unit outside of the shower. If any bleeding or leakage is noted please call your doctor's office. This will remain on your incision for 7 days and then should be removed. This can be done yourself or by the home nursing staff if applicable. The entire unit is disposable once removed. Once removed, keep incision clean and dry. If redness or drainage is noted, please call your surgeon. . FOLLOW UP VISIT: If appointment is not already scheduled: Please call [facility] to make a follow-up appointment for 2 weeks after your surgery at . Current Hospital Diet Patient's current hospital diet: Regular Diet Discharge Diet Recommended Diet: Regular Diet Procedures Procedures Performed: Right Total Knee Arthroplasty Pending Studies Studies pending at discharge: no Laboratory Results Hemoglobin A1c Test 10/04/17 14:29 Range/Units Estimated Average Glucose 131 mg/dl Hemoglobin A1c 6.2 H 4.5-5.6 % Lipid Panel Test 08/27/17 10:22 Range/Units Triglycerides Level 133 0-150 mg/dl Cholesterol Level 166 0-200 mg/dl HDL Cholesterol 48 mg/dl Cholesterol/HDL Ratio 3.5 LDL Cholesterol, Calculated 91 mg/dl Medical Emergencies . Who to Call and When: Medical Emergencies: If at any time you feel your situation is an emergency, please call 911 immediately. . Non-Emergent Contact Non-Emergency issues call your: Surgeon Call Non-Emergent contact if: temperature is above 101.5, your pain is not controlled, wound has increased drainage, wound has increased redness . "Provider Documentation" section prepared by Hitesh Holt PA-C. . VTE Core Measure Inpt VTE Proph given/why not?: Other Anticoagulation (ASA), T.E.D. Stockings, SCD's [place] Drug Monitoring Program Search Results: patient reviewed within database, no issues identified
[2017-11-01] MEDS: BRINZOLAMIDE (AZOPT) OPS 10 ML BTL OP SCH ×2 (08:55→21:21)
[2017-11-01] MEDS: NORTRIPTYLINE HCL 10 MG CAP PO SCH ×2 (08:55→21:21)
[2017-11-01] MEDS: PANTOprazole SOD 40 MG TAB PO SCH (08:55)
[2017-11-01] MEDS: MULTIVITAMIN TAB PO SCH (08:55)
[2017-11-01] MEDS: ASPIRIN 81 MG ECTAB PO SCH ×2 (08:55→21:22)
[2017-11-01] MEDS: DOCUSATE SODIUM 100 MG CAP PO SCH ×2 (08:55→21:22)
[2017-11-01] MEDS: HYDROCHLOROTHIAZIDE 25 MG TAB PO SCH (08:55)
[2017-11-01] MEDS: CeleBREX 200 MG CAP PO SCH ×2 (08:56→21:22)
[2017-11-01] MEDS: FERROUS GLUCONATE 324 MG TAB PO SCH ×3 (08:56→17:45)
[2017-11-01] MEDS: TRAMADOL HCL 50 MG TAB PO PRN (18:52)
[2017-11-01] MEDS: SENNA 8.6 MG TAB PO SCH (21:00)
[2017-11-01] MEDS ORDERED: ATORVASTATIN 20 MG TAB PO SCH (21:00)
[2017-11-01] MEDS: FENOFIBRATE 145 MG TAB PO SCH (22:05)
[2017-11-02] MEDS: TRAMADOL HCL 50 MG TAB PO PRN (00:37)
[2017-11-02] MEDS: ACETAMINOPHEN 500 MG TAB PO SCH (05:36)
[2017-11-02] MEDS: LEVOTHYROXINE 75 MCG TAB PO SCH (05:36)
--- NOTE | 2017-11-02 06:46 | Orthopedic Progress Note ---
Orthopedic Progress Note Date of Service Nov 02, 2017. Subjective Post OP Day: 2 Reports: feeling well, pain controlled w PO medications, Denies: complaints, chest pain, SOB, nausea / vomiting, light headedness, calf pain Objective calves soft nontender, N/V intact, dressing C/D/I (prevena intact), A&O x3, toes mobile Date Time Temp Pulse Resp B/P (MAP) Pulse Ox O2 Delivery O2 Flow Rate FiO2 11/01/17 23:30 94 Room Air 11/01/17 23:04 37.0 73 18 117/68 (84) 94 Room Air 11/01/17 16:23 36.9 71 17 134/84 (101) 92 Room Air 11/01/17 15:50 Room Air 11/01/17 11:58 36.5 74 18 132/82 (99) 97 Room Air 11/01/17 08:19 92 Room Air 11/01/17 07:58 36.2 73 20 154/80 (104) 92 Room Air 11/01/17 07:55 Room Air Assessment & Plan Assessment: 72 yo female stable POD #2 s/p right TKA, mild footdrop- resolved Plan: 1. Med management 2. DVT prophylaxis- ASA, SCDs 3. PT/OT 4. D/C planning- home w/ HH, likely dc after pt today Discharge Planning Discharge Planning: home with home health DVT Prophylaxis: TEDs, SCDs, ASA Therapy: Physical Therapy
[2017-11-02] MEDS ORDERED: CLC100 PO (06:49)
[2017-11-02] MEDS ORDERED: ASPEC81 PO (06:49)
[2017-11-02] MEDS ORDERED: ACET-24 PO (06:49)
[2017-11-02] MEDS ORDERED: CLB200 PO (06:49)
[2017-11-02] MEDS ORDERED: RXC5 PO (06:49)
[2017-11-02] MEDS ORDERED: ULT50X PO (06:49)
[2017-11-02] MEDS ORDERED: ONDA8TAB6 PO (06:49)
[2017-11-02 07:02] VITALS: BP 125/83; PULSE 66; TEMP 36.4; O2SAT 94
[2017-11-02] MEDS: FERROUS GLUCONATE 324 MG TAB PO SCH (07:28)
[2017-11-02] MEDS: PANTOprazole SOD 40 MG TAB PO SCH (07:32)
[2017-11-02] MEDS: MULTIVITAMIN TAB PO SCH (07:32)
[2017-11-02] MEDS: HYDROCHLOROTHIAZIDE 25 MG TAB PO SCH (07:32)
[2017-11-02] MEDS: BRINZOLAMIDE (AZOPT) OPS 10 ML BTL OP SCH (07:32)
[2017-11-02] MEDS: NORTRIPTYLINE HCL 10 MG CAP PO SCH (07:54)
[2017-11-02] MEDS: CeleBREX 200 MG CAP PO SCH (07:54)
[2017-11-02] MEDS: ASPIRIN 81 MG ECTAB PO SCH (07:54)
[2017-11-02] MEDS: DOCUSATE SODIUM 100 MG CAP PO SCH (07:54)
[2017-11-02 08:33] VITALS: BP 125/83; PULSE 66; TEMP 36.4; O2SAT 94
--- NOTE | 2017-11-04 13:04 | Discharge Summary ---
Orthopedic Discharge Summary Admission Date/Reason Oct 31, 2017 at 11:12 Osteoarthritis Right Knee. Discharge Date/Disposition Nov 02, 2017 Home with services Diagnosis Principal Diagnosis: Osteoarthritis right knee Secondary Diagnoses/Problems: : Hypertension, hypercholesterolemia, depression, osteoarthritis and acid reflux. Procedure(s) Performed Right total knee arthroplasty Medication Reconciliation New Medications: Ondansetron Hcl (Zofran) 8 Mg Tab 8 MG PO Q8 PRN for Nausea, #20 TAB Acetaminophen (Sb Non-Aspirin Extra Stre) 500 Mg Tab 1000 MG PO Q8, #63 TAB Aspirin (Aspirin EC Low Dose) 81 Mg Ectab 81 MG PO BID for 30 Days, #60 TAB Celecoxib (Celebrex) 200 Mg Cap 200 MG PO BID for 30 Days, #60 CAP Docusate Sodium (Docusate Sodium) 100 Mg Cap 100 MG PO BID for 10 Days, #20 CAP Oxycodone HCl (Oxycodone HCl) 5 Mg Tab 5-10 MG PO Q4H PRN for Pain, #60 TAB Tramadol HCl (Tramadol HCl) 50 Mg Tab 50-100 MG PO Q4H PRN for Pain, #60 TAB Continued Medications: Atenolol (Tenormin) 25 Mg Tab 25 MG PO QAM Atorvastatin (Lipitor) 20 Mg Tab 20 MG PO Q2D, TAB PM Brinzolamide Oph (Azopt Oph) 1 % Azul 1 DROP OP BID, BTL Calcium Carbonate-Vitamin D (Calcium + D) 1 Tab Tab 1 TAB PO QAM Cholecalciferol (Vitamin D) 2,000 Unit Cap 2000 UNITS PO QAM Cholecalciferol (Vitamin D3) 1,000 Unit Tab 1 TAB PO QAM for 90 Days, #90 TAB 3 Refills Cholestyramine (Bulk) (Cholestyramine) 1 Pow Pow 1 DOSE PO QAM Cranberry (Vaccinium Macrocarp (Cranberry) 500 Mg Cap 500 MG PO QAM Fenofibrate (Tricor ) 145 Mg Tab 145 MG PO QPM, TAB Hydrochlorothiazide (Hctz) 25 Mg Tab 12.5 MG PO QAM Levothyroxine Sodium (Levothyroxine Sodium) 75 Mcg Tab 1 TAB PO QAM for 90 Days, #90 TAB 3 Refills Nortriptyline Hcl (Pamelor) 10 Mg Cap 10 MG PO BID Omeprazole (Prilosec) 20 Mg Cap 20 MG PO HS [Rosuvastatin] () 1 TAB PO QPM Discontinued Medications: Aspirin (Aspirin Ec) 81 Mg Tab 81 MG PO QPM Admission Physical Exam As per Admitting History & Physical. Hospital Course The Patient had an uneventful hospital course. Labs remained stable- lowest hemoglobin recorded: 12.9. Pain controlled on oral medications. Participated in PT with ambulation distance of 650 feet. ROM of operative knee reached 95 degrees. Drainage output totaled 501 cc prior to discontinuation. Patient did not have a reported bowel movement. Incision remained clean/dry/intact. DVT prophylaxis with Aspirin EC 81mg BID x 30 days/Edouard stockings. Patient discharged home with Home Health Services in stable condition. Please refer to daily progress notes for further details. Discharge Instructions Please refer to the electronic Patient Visit Report (Discharge Instructions) for additional information.
== END 2017-11-02 11:20 | disposition home health service (06) | DRG 470 ==
LOC: C.ACU 10:38 → C.3E 11:12 → ENRESERV 15:26
PROC: 0SRC0J9 Replacement of Right Knee Joint with Synthetic Substitute, Cemented, Open Approach (ICD-10-PCS; principal; 2017-10-31 13:15)
DX: M17.11 Unilateral primary osteoarthritis, right knee (principal); I10 Essential (primary) hypertension; E78.00 Pure hypercholesterolemia, unspecified; K21.9 Gastro-esophageal reflux disease without esophagitis; F32.9 Major depressive disorder, single episode, unspecified; Z79.52 Long term (current) use of systemic steroids; Z79.82 Long term (current) use of aspirin; Z79.899 Other long term (current) drug therapy; Z96.652 Presence of left artificial knee joint

== ENCOUNTER → 2017-12-12 | Outpatient (CLI) | payer BC ==
[~2017-12-12] MED LIST changes: +ACET-24 PO; -ACETAMINOPHEN 500 MG TAB PO SCH; +ASPEC81 PO; -ASPI81TA28 PO; -ATROPINE SULFATE 0.1 MG/ML 5ML SYR IV PRN; -BUPIVACAINE 0.5 % 5 MG/1 ML PF 10ML VIAL ONE; -CEFAZOLIN 2000MG IV PUSH 15 ML IV SCH; +CLB200 PO; +CLC100 PO; -CeleBREX 200 MG CAP PO SCH; -DEXAMETHASONE 4 MG TAB PO SCH; -EpHEDrine SULFATE INJ 50 MG/ML AMP IV PRN; -FAMOTIDINE 20 MG TAB PO SCH; -GABAPENTIN 300 MG CAP PO SCH; -HYDROmorphone INJ 2 MG/ML SYR/VIAL IV PRN; -LACTATED RINGER'S 1000ML 1,000 ML IV SCH; -LACTATED RINGER'S 1000ML 500 ML IV SCH; -LACTATED RINGER'S 1000ML IV SCH; -METOCLOPRAMIDE HCL 10 MG TAB PO SCH; +ONDA-170 PO; -ONDANSETRON INJ 2 MG/ML 2 ML VIAL IV PRN; -OXYCODONE HCL 10 MG TABCR (OXYCONTIN) PO SCH; -PATIENT'S ALLERGY INFO NEEDS ENTERED SCH; -PHENYLEPHRINE 100MCG/ML 5ML SYR IV PRN; -PRED10TA PO; -ROPIVACAINE 0.5% 5 MG/ML 30 ML VIAL ONE; -ROPIVACAINE 5MG/ML 30 ML 150 MG, BUPIVACAINE 0.5% MPF INJ 30 ML, EpINEphrine HCL INJ 0.... INFIL SCH; +RXC5 PO; +ULT50X PO
--- NOTE | 2017-12-13 07:22 | MAMMOGRAPHY REPORT ---
BILATERAL DIGITAL SCREENING MAMMOGRAM TOMOSYNTHESIS WITH CAD: 12/12/2017 CLINICAL HISTORY: Routine screening. Patient has no complaints. TECHNIQUE: Breast tomosynthesis in addition to standard 2D mammography was performed. Current study was also evaluated with a Computer Aided Detection (CAD) system. COMPARISON: Comparison is made to exams dated: 12/10/2016 mammogram, 11/29/2015 mammogram, 11/24/2014 m ammogram, 11/23/2013 mammogram, 11/21/2012 mammogram, and 11/21/2011 mammogram - [facility] ter. BREAST COMPOSITION: The tissue of both breasts is heterogeneously dense, which may obscure small mas ses. FINDINGS: No suspicious masses, calcifications, or areas of architectural distortion are noted in ei ther breast. There has been no significant interval change compared to prior exams. Bilateral benign -appearing calcifications are not significantly changed. IMPRESSION: ACR BI-RADS CATEGORY 2: BENIGN There is no mammographic evidence of malignancy. A 1 year screening mammogram is recommended. The pa tient will receive written notification of the results. Approximately 10% of breast cancers are not detected with mammography. A negative mammographic report should not delay biopsy if a clinically suggestive mass is present. Tash Teague M.D. /:12/12/2017 13:45:28 Art Dealer: Nunu LEWIS)(Ayde)(BD), [facility] letter sent: Normal 1/2 BI-RADS Code: ACR BI-RADS Category 2: Benign
== END | disposition home or self-care (01) ==
LOC: C.MAMM 09:32
PROVIDERS: ATTEND Nurse Practitioner Family
DX: Z12.31 Encounter for screening mammogram for malignant neoplasm of breast (principal); M85.89 Other specified disorders of bone density and structure, multiple sites

== ENCOUNTER → 2018-01-15 | Outpatient (CLI) | payer BC ==
[~2018-01-15] MED LIST changes: -ASPEC81 PO; +ASPI-320 PO
== END | disposition home or self-care (01) ==
LOC: C.LABPBG 11:16
PROVIDERS: ATTEND Nurse Practitioner Family
DX: N39.0 Urinary tract infection, site not specified (principal)

== ENCOUNTER 2019-02-11 05:44 | Inpatient (IN) ==
--- NOTE | 2019-01-29 10:36 | PAT Medication Instructions ---
Medication Instructions Date of Service January 29, 2019 Home Medications albuterol sulfate 2 puff INHALATION Q6H PRN aspirin [Aspirin Low Dose] 81 mg PO QAM atenolol 25 mg PO QAM atorvastatin [Lipitor] 10 mg PO Q2D brinzolamide [Azopt] 1 drp OPHTHALMIC (EYE) BID cholecalciferol (vitamin D3) 2,000 unit PO QAM cholestyramine (with sugar) 4 g PO QAM conjugated estrogens [Premarin] 1 applic VAGINAL 3XWK cranberry 500 mg PO QAM fenofibrate nanocrystallized 145 mg PO Q2D hydrochlorothiazide 25 mg PO QAM levothyroxine 75 mcg PO QAM nortriptyline 10 mg PO BID omeprazole 20 mg PO QAM Continue as directed conjugated estrogens [Premarin] 1 applic VAGINAL 3XWK atorvastatin [Lipitor] 10 mg PO Q2D ASK your prescriber and surgeon aspirin [Aspirin Low Dose] 81 mg PO QAM STOP taking 2 weeks before surgery (or as soon as possible if surgery is within 2 weeks) cranberry 500 mg PO QAM STOP taking 24 hours before surgery cholestyramine (with sugar) 4 g PO QAM fenofibrate nanocrystallized 145 mg PO Q2D DO NOT take the morning of surgery cholecalciferol (vitamin D3) 2,000 unit PO QAM hydrochlorothiazide 25 mg PO QAM Take morning of surgery With a small sip of water, OTHERWISE NOTHING TO EAT OR DRINK AFTER MIDNIGHT: albuterol sulfate 2 puff INHALATION Q6H PRN (use if needed; please bring with you to hospital day of surgery if possible) atorvastatin [Lipitor] 10 mg PO Q2D brinzolamide [Azopt] 1 drp OPHTHALMIC (EYE) BID levothyroxine 75 mcg PO QAM nortriptyline 10 mg PO BID omeprazole 20 mg PO QAM Take evening before surgery albuterol sulfate 2 puff INHALATION Q6H PRN (if needed) brinzolamide [Azopt] 1 drp OPHTHALMIC (EYE) BID nortriptyline 10 mg PO BID Other Notes If you have any questions please call us at [phone] or [phone] or [phone] or [phone]
--- NOTE | 2019-02-02 13:59 | Anesthesiology Consultation ---
Date of Service February 02, 2019 Assessment & Plan (1) Encounter for pre-operative examination: Chart Review Chart Review: Acceptable Risk for Surgery and Patient seen in Pre Admission Testing Teaching & Discussion Pre-Anesthesia Teaching/Discussion Notes: Instructed NPO after midnight before surgery,except medications with 15 cc of water. Medication instructions provided according to the PAT guidelines. History Surgery Operation Date: 02/11/19 07:30 Proposed Procedures p Navigational Bronchoscopy with ICG Dye, - Thuan Mejia MD, FACS s Robotic Right Video Assisted Thoracoscopy with Right Lower Lobe Wedge Res ection, Possible Right Lower Lobectomy with Mediastinal Lymphadenectomy - Thuan Mejia MD, FACS Height/Weight Height: 5 ft 4 in Weight: 93 kg Allergies Allergy/AdvReac Type Severity Reaction Status Date / Time meperidine AdvReac Mild VOMITING Verified 01/28/19 15:36 Medications Home Medications Medication Instructions Recorded Confirmed Last Taken albuterol sulfate 2 puff INHALATION Q6H PRN 01/28/19 01/28/19 Unknown aspirin [Aspirin Low Dose] 81 mg PO QAM 01/28/19 01/28/19 Unknown atenolol 25 mg PO QAM 01/28/19 01/28/19 Unknown atorvastatin [Lipitor] 10 mg PO Q2D 01/28/19 01/28/19 Unknown brinzolamide [Azopt] 1 drp OPHTHALMIC (EYE) BID 01/28/19 01/28/19 Unknown cholecalciferol (vitamin D3) 2,000 unit PO QAM 01/28/19 01/28/19 Unknown [Vitamin D3] cholestyramine (with sugar) 4 g PO QAM 01/28/19 01/28/19 Unknown conjugated estrogens [Premarin] 1 applic VAGINAL 3XWK 01/28/19 01/28/19 Unknown cranberry 500 mg PO QAM 01/28/19 01/28/19 Unknown fenofibrate nanocrystallized 145 mg PO Q2D 01/28/19 01/28/19 Unknown hydrochlorothiazide 25 mg PO QAM 01/28/19 01/28/19 Unknown levothyroxine 75 mcg PO QAM 01/28/19 01/28/19 Unknown nortriptyline 10 mg PO BID 01/28/19 01/28/19 Unknown omeprazole 20 mg PO QAM 01/28/19 01/28/19 Unknown Past Medical History Medical History Anxiety Chronic back pain GERD (gastroesophageal reflux disease) CONTROLLED Glaucoma Hiatal hernia Hyperlipidemia Hypertension Hypothyroidism Obesity Osteoarthritis Osteopenia Exercise / Class Metabolic Activity II 4-5 Yardwork/Stairs/Walk up hill Past Family History Family History Other No pertinent family history Past Surgical History Surgical History History of cholecystectomy History of colonoscopy History of repair of rotator cuff RIGHT History of total knee replacement BILATERAL Past Anesthesia History No Hx of Anesthesia Complications (EXCEPT PONV WITH MEPERIDINE X 1 EPISODE) and No Family Hx of Anesthesia Complications History of PONV No Hx of Motion Sickness and History of PONV Social History Smoking Status: Former smoker tobacco type: cigarettes Smoking cigarettes per day: QUIT 50+ YEARS AGO; HX 1/4 PPD X 3 YEARS (AGE 17 TO 20) Do You Dip or Chew Tobacco: No Hx Alcohol Use: No Hx Substance Use: No substance use type: does not use Review of Systems Reflux controlled. Patient denies chest pain, shortness of breath, cough, wheezing, palpitations. Physical Exam Vital Signs VITALS BP 139/83 P 66 TEMP 97.9 SP02 95%RA RESP 18 PHYSICAL Full neck and c-spine range of motion. Full TMJ range of motion. TMD 3 finger breaths Mallampati Score 3 Dentition: lower partial, upper full dentures Lungs: clear throughout to auscultation Cardiac: regular rate and rhythm, no murmurs noted Spine: normal Carotid arteries: negative bruit Extremities: no edema Testing Laboratory Results 02/02/19 14:14 02/02/19 14:14 02/02/19 14:14 Blood Type A Positive Antibody Screen NEGATIVE Electrocardiogram Date: 02/02/19 Findings: + NSR @ (68) Stress Test Date: 01/29/14 Type: exercise Negative stress ECHO/EKG for ischemia at 94% MPHR. No arrhythmia. No chest pain. 7 METS. Technically difficult study. EF 70-75%. Type I DD. Mild AV sclerosis. Other Testing Chest CT: 02/02/19: Redemonstration of the 2 cm mixed solid and ground glass irregular nodule within the base of the right lower lobe. This should be considered neoplastic until proven otherwise. A 3 mm indeterminate pulmonary nodule within the base of the right lower lobe. Linear ground glass density within the periphery of the left upper lobe. This favors scarring.
[2019-02-02 16:29] LABS: Basophils # (auto) 0.04 K/uL (0-0.2); Basophils % (auto) 0.6 %; Eosinophils # (auto) 0.24 K/uL (0-0.5); Eosinophils % (auto) 3.4 %; Hematocrit (blood only) 42.4 % (37-47); Hemoglobin 14.5 g/dL (12.0-16.0); Immature Granulocytes # (auto) 0.02 K/uL (0.00-0.02); Immature Granulocytes % (auto) 0.3 %; Lymphocytes # (auto) 2.73 K/uL (1.2-3.4); Lymphocytes % (auto) 38.5 %; Mean Corpuscular Hgb Conc 34.2 g/dL (32-36); Mean Corpuscular Volume 86.7 fL (80-100); Mean Platelet Volume 10.5 fL (7.4-10.4); Monocytes # (auto) 0.56 K/uL (0.11-0.59); Monocytes % (auto) 7.9 %; Neutrophils % (auto) 49.3 %; Platelet Count 297 K/uL (130-400); RDW Coefficient of Variation 13.9 % (11.5-14.5); Red Blood Count 4.89 M/uL (4.2-5.4); White Blood Count 7.09 K/uL (4.8-10.8)
[2019-02-02 16:39] LABS: BUN Creatinine Ratio 14.2 (10-20); Calcium 9.3 mg/dl (8.5-10.1); Creatinine Clr Calc Pharmacy 45.9 ml/min; Est GFR (African American) 52.8; Est GFR (Non-African American) 45.5; Potassium 4.1 mmol/L (3.5-5.1)
[2019-02-11] MEDS ORDERED: LR 15ML/HR IV SCH (06:00)
[2019-02-11] MEDS ORDERED: ONDANSETRON INJ 2 MG/ML 2 ML VIAL ONE (06:57)
[2019-02-11] MEDS ORDERED: DEXAMETHASONE SOD INJ 4 MG/ML VIAL ONE (06:57)
[2019-02-11] MEDS ORDERED: PROPOFOL IV EMULSION 10 MG/ML 20 ML VIAL IV ONE (06:57)
[2019-02-11] MEDS ORDERED: GLYCOPYRROLATE 0.2 MG/ML VIAL ONE ×2 (06:57→12:00)
[2019-02-11] MEDS ORDERED: NEOSTIGMINE METHYLSULFATE 5 MG/5 ML SYR ONE (06:57)
[2019-02-11] MEDS ORDERED: LIDOCAINE HCL 2% 2 ML VIAL/AMP(20MG/ML) INFIL ONE (06:57)
[2019-02-11] MEDS ORDERED: BUPIVACAINE 0.5 % 5 MG/1 ML MPF 30ML VIAL ONE (06:59)
[2019-02-11] MEDS ORDERED: SODIUM CHLORIDE 0.9% PF 50 ML VIAL ONE (07:00)
[2019-02-11] MEDS ORDERED: fentaNYL citrate 100 MCG/2 ML VIAL ONE ×2 (07:00→09:06)
[2019-02-11] MEDS ORDERED: BUPIVACAINE LIPOSOME 1.3% 266 MG/20 ML VIAL ONE (07:00)
[2019-02-11] MEDS ORDERED: MIDAZOLAM HCL 1 MG/ML 2ML VIAL ONE (07:00)
--- NOTE | 2019-02-11 07:01 | History & Physical Bridge Note ---
Date of Service February 11, 2019 History & Physical Bridge Note I have examined the patient, reviewed the History & Physical and in the interval since the performance of the History & Physical I have noted the following changes of clinical significance: no changes noted
[2019-02-11] MEDS ORDERED: INDOCYANINE GREEN 25 MG/10 ML INJ ONE (08:10)
--- NOTE | 2019-02-11 08:30 | Fluoroscopy Report ---
FL chest 1V frontal CLINICAL HISTORY: NAVIGATIONAL BRONCH COMPARISON STUDY: Chest CT dated 02/02/2019 FLUOROSCOPY TIME: 27 seconds. NUMBER OF FLUOROSCOPIC IMAGES: 1 FINDINGS: A single intraprocedural fluoroscopic spot image demonstrates a bronchoscope with its tip i n the right lower lobe. IMPRESSION: Fluoroscopic spot image demonstrating a bronchoscope with its tip in the right lower lob e Electronically signed by: Jack Meyers M.D. 02/11/2019 8:28 AM
[2019-02-11] MEDS ORDERED: CEFAZOLIN 2000MG 2,000 MG/15 ML SYR IV ONE (09:08)
[2019-02-11] MEDS ORDERED: SURGICEL ABSORB HEMOSTAT 2IN X 14IN TOP ONE (12:04)
[2019-02-11] MEDS ORDERED: METOCLOPRAMIDE HCL INJ 5 MG/ML 2 ML VIAL IV ONE (12:45)
--- NOTE | 2019-02-11 12:59 | XRay Report ---
XR chest 1V portable CLINICAL HISTORY: right wedge resection postoperative evaluation COMPARISON STUDY: 02/02/2015. FINDINGS: Postoperative changes right hemithorax. Minimal right apical pneumothorax. Maximum pleural separation is 8 mm. Postprocedural infiltrative change right base. Mild atelectasis left base. IMPRESSION: Postoperative changes right hemithorax with a minimal residual right apical pneumothorax . The above report was generated using voice recognition software. It may contain grammatical, syntax or spelling errors. Electronically signed by: Irving Katz M.D. 02/11/2019 12:57 PM
--- NOTE | 2019-02-11 14:07 | Anesthesiology Progress Note ---
Date of Service February 11, 2019 Anesthesia Post Procedure Vital Signs Vital Signs: Temp Pulse Resp BP Pulse Ox 02/11/19 14:00 63 17 102/61 93 02/11/19 13:50 64 13 111/74 97 02/11/19 13:40 36.3 C L 63 15 115/63 96 02/11/19 13:30 64 15 107/64 96 02/11/19 13:20 62 22 116/66 97 02/11/19 13:10 62 17 120/78 98 02/11/19 13:00 62 32 H 134/70 95 02/11/19 12:50 60 24 100/66 98 02/11/19 12:44 35.7 C L 62 16 104/69 96 02/11/19 06:12 36.7 C 67 18 184/80 H 96 Pain Intensity Right Lateral Chest: Pain Intensity: 0 Transfer of Care Handoff Completed per policy Notes Mental Status: alert / awake / arousable Patient Amnestic to Procedure: Yes Nausea / Vomiting: adequately controlled Pain: adequately controlled Airway Patency, RR, SpO2: stable & adequate BP & HR: stable & adequate Hydration State: stable & adequate Anesthetic Complications: no major complications apparent and Pt Satisfied with anesthetic care
[2019-02-11] MEDS ORDERED: ALBUTEROL HFA 8 GM INHALER INH PRN (14:24)
[2019-02-11] MEDS ORDERED: ONDANSETRON INJ 2 MG/ML 2 ML VIAL IV PRN (14:24)
[2019-02-11] MEDS ORDERED: MoRPHine SULFATE 2 MG/ML CARP IV PRN (14:24)
[2019-02-11] MEDS ORDERED: OXYCODONE HCL IR 5 MG TAB (IMMEDIATE RELEASE) PO PRN (14:24)
[2019-02-11] MEDS: ACETAMINOPHEN 1,000 MG/100 ML VIAL IV SCH ×2 (16:15→23:45)
[2019-02-11] MEDS: METOCLOPRAMIDE HCL INJ 5 MG/ML 2 ML VIAL IV SCH ×2 (16:15→22:01)
[2019-02-11] MEDS ORDERED: ePHEDrine sulfate 50 MG/ML AMP ONE (16:23)
[2019-02-11] MEDS ORDERED: CEFAZOLIN 250 MG/ML 1 GM VIAL ONE (16:24)
[2019-02-11] MEDS: D5W AND 1/2NSS 1,000 ML IV SCH (16:39)
--- NOTE | 2019-02-11 17:29 | Post Operative Brief Note ---
Immediate Post Op Note v1 Date of Surgery February 11, 2019 Pre & Post Diagnosis Operation Date: 02/11/19 07:30 Pre-Op Diagnosis: Right Lung Nodule Post-Op Diagnosis: Right Lung Nodule Procedure Operation Date: 02/11/19 07:30 Actual Procedures s Navigational Bronchoscopy with ICG Dye, - Thuan Mejia MD, FACS p Robotic Right Video Assisted Thoracoscopy with Right Lower Lobe Wedge Resection with Mediastinal Lymphadenectomy, Extensive Lysis of Adhesions(Right) - Thuan Mejia MD, FACS Surgeon Thuan Mejia MD, FACS Pet [employer] Associate Todd CORTES Estimated Blood Loss 100 Findings Consistent with Post-Op Diagnosis Drains Chest Tube and Aragon Catheter
[2019-02-11] MEDS ORDERED: ZOLPIDEM TARTRATE 5 MG TAB PO PRN (20:34)
[2019-02-11] MEDS: BRINZOLAMIDE (AZOPT) OPS 10 ML BTL OP SCH (21:56)
[2019-02-11] MEDS: DOCUSATE SODIUM 100 MG CAP PO SCH (21:59)
[2019-02-11] MEDS: NORTRIPTYLINE HCL 10 MG CAP PO SCH (21:59)
[2019-02-12] MEDS: D5W AND 1/2NSS 1,000 ML IV SCH ×2 (03:00→11:32)
[2019-02-12] MEDS: METOCLOPRAMIDE HCL INJ 5 MG/ML 2 ML VIAL IV SCH (06:08)
[2019-02-12 06:21] LABS: BUN Creatinine Ratio 14.6 (10-20); Calcium 8.2 mg/dl (8.5-10.1); Creatinine Clr Calc Pharmacy 52.1 ml/min; Est GFR (African American) 61.6; Est GFR (Non-African American) 53.1; Potassium 3.9 mmol/L (3.5-5.1)
[2019-02-12] MEDS ORDERED: LEVOTHYROXINE SODIUM 75 MCG TABLET PO SCH (06:30)
[2019-02-12 06:49] LABS: Basophils # (auto) 0.01 K/uL (0-0.2); Basophils % (auto) 0.1 %; Eosinophils # (auto) 0.01 K/uL (0-0.5); Eosinophils % (auto) 0.1 %; Hematocrit (blood only) 36.1 % (37-47); Hemoglobin 11.8 g/dL (12.0-16.0); Immature Granulocytes # (auto) 0.04 K/uL (0.00-0.02); Immature Granulocytes % (auto) 0.3 %; Lymphocytes # (auto) 2.24 K/uL (1.2-3.4); Lymphocytes % (auto) 19.4 %; Mean Corpuscular Volume 87.2 fL (80-100); Mean Platelet Volume 10.4 fL (7.4-10.4); Monocytes # (auto) 0.93 K/uL (0.11-0.59); Monocytes % (auto) 8.1 %; Neutrophils # (auto) 8.31 K/uL (1.4-6.5); Platelet Count 230 K/uL (130-400); RDW Coefficient of Variation 14.5 % (11.5-14.5); RDW Standard Deviation 46.1 fL (36.4-46.3); Red Blood Count 4.14 M/uL (4.2-5.4); White Blood Count 11.54 K/uL (4.8-10.8)
[2019-02-12 06:50] LABS: Mean Corpuscular Hgb Conc 32.7 g/dL (32-36)
[2019-02-12 06:58] LABS: Prothrombin Time 10.4 Seconds (9.0-12.0)
--- NOTE | 2019-02-12 07:40 | XRay Report ---
XR chest 1V portable CLINICAL HISTORY: right wedge resection COMPARISON STUDY: Chest radiograph February 11, 2019 at 12:48 PM. FINDINGS: Postoperative findings within the right shoulder are incidentally noted. Subcutaneous gas w ithin the right chest wall and neck has increased. A right chest tube is in place. A small right pneu mothorax is similar to prior exam. Bibasilar opacities persist. There is no evidence for pulmonary ed ramesh. IMPRESSION: 1. Right chest tube in place. Small right pneumothorax, similar to prior exam. 2. Increase in subcutaneous gas within the right chest wall and neck. Electronically signed by: Mo Garnica M.D. 02/12/2019 7:39 AM
--- NOTE | 2019-02-12 08:08 | Operative Report ---
DATE OF OPERATION: 02/10/2019 PREOPERATIVE DIAGNOSIS: Slowly enlarging ground-glass opacity in right lower lobe. POSTOPERATIVE DIAGNOSIS: Benign ground-glass opacity in right lower lobe. PROCEDURE: 1. Electromagnetic navigational bronchoscopy with marking of this mass with indocyanine green dye. 2. Robot-assisted thoracoscopic takedown of extensive adhesions. 3. Wedge resection. ANESTHESIA: General anesthesia, endotracheal intubation. SURGEON: Thuan Mejia MD HISTOLOGY TECHNOLOGIST: SOPHIA Ruby (Mr. English was present for the entire case at the patient's bedside while I was at console). SPECIFICS OF PROCEDURE AND FINDINGS: Stephanie Mobley is a 73-year-old female who has a very light history of cigarette smoking, who was noted to have a ground-glass opacity for a long period of time. It was slowly enlarging. The patient was really anxious about this. She and her both stated emphatically that they "wanted it out." I explained that observation was another option; however, they did not want to do this and they learned that it had grown in size. For this reason, I brought the patient to the operating room on 02/10/2019 and performed indocyanine green dye marking of this mass. I could not palpate it. We then turned the patient and placed a robotic thoracoscope in and I was dismayed to see the adhesions. They were quite dense. I managed to take all of the adhesions down, although it took an extended period of time. We did this meticulously with the robot after gaining access and bluntly and sharply taking down these adhesions. We were finally able to use the fluorescence and we could see the marked area quite nicely. I could not palpate anything here. I wedged this out and sent it for frozen section and no masses were noted. No evidence of malignancy was noted. I also removed a fairly large area of the peripheral lung laterally, which is the area of this mass also as we had suffered some trauma to this in taking down the adhesions. We also removed a small portion of the right lower lobe anteriorly, which likewise had been macerated. We had a small air leak at conclusion of the case, but she tolerated it well, really did not lose much blood. Although the case was a bit long. She tolerated it well, was extubated in the room. DESCRIPTION OF PROCEDURE: The patient brought to operating room and laid in supine position, general anesthesia induced. Endotracheal intubation performed with a single-lumen tube. Electromagnetic navigational bronchoscopy was then performed without difficulty after appropriate timeout had been called and antibiotics given. Bronchoscope was placed, and I saw no endobronchial lesions or mucus. The airways were then registered with the SuperDimension system. We then went down into the right lower lobe and I came out directly to the mass. I really could not see much with the radial ultrasound; however, by the computer, we were right in the area. I injected 1 mL of indocyanine green dye with 1 mL of air and then we removed the bronchoscope. The patient was then switched over to a double-lumen tube. Arterial line was placed and she was placed in the left lateral decubitus position. Right chest was prepped and draped in usual sterile fashion. Just a bit anterior to mid axillary line about the eighth interspace, I entered the chest in and was very difficult to get in. Bluntly and sharply got in and we could see that there were adhesions. I was able to use the scope to free up many of these until I could get another port in, in the same interspace posteriorly about 10 cm away. After placing this 8-mm port, I was able to use a cotton-tipped applicator that was a very long, and by using this Kitner, I was able to free up many of the adhesions, so that 8-mm port could be placed anteriorly and then another 5-mm port placed posteriorly and the clerical administrative assistant's port just above the diaphragm anteriorly. With these ports all in place, we then worked quite diligently to take down the adhesions. This was very difficult; however, with the robot, I did find it a bit easier, the visualization was excellent. We took down the lower lobe and upper lobe adhesions and freed up much of the fissure also. After working on this for quite some time, I had adequately freed up and we used the immunofluorescence and we could see a nice area of green. With the use of Endo-DEVON staplers, I went and did a generous wedge resection, sent this for frozen. While waiting, there was an area along the diaphragmatic sulcus a bit laterally, which had been quite macerated. For this reason, I did a generous wedge resection of this area with an Endo-DEVON stapler a bit more posterior than the area, which had been marked. Again, I felt no masses, but we sent this off to the lab. I also removed a portion anteriorly in the lower lobe. After thoroughly irrigating out the chest, I did not see much in the way of an air leak. While waiting for the frozen section, I took out multiple mediastinal lymph nodes. Frozen section came back as an apparent benign etiology, so we irrigated out the chest and did not see much of an air leak. A 24-Croatian chest tube was placed through one of the ports and directed towards the apex and sutured in place with heavy silk suture. The larger port sites were closed with 0 Vicryl to reapproximate the muscle and 4-0 Monocryl was used in running subcuticular fashion to approximate the wound edges. She tolerated it well, was extubated in the room, and was transported back to the postanesthesia care unit in stable condition with a small air leak. I attest to the content of the Intraoperative Record and any orders documented therein. Any exceptions are noted below. RISHI
[2019-02-12] MEDS: ACETAMINOPHEN 1,000 MG/100 ML VIAL IV SCH (08:41)
[2019-02-12] MEDS ORDERED: ATENOLOL 25 MG TABLET PO SCH (09:00)
[2019-02-12] MEDS ORDERED: ATORVASTATIN 10 MG TAB PO SCH (09:00)
[2019-02-12] MEDS ORDERED: FENOFIBRATE NANOCRYSTALLIZED 145 MG TABLET PO SCH (09:00)
[2019-02-12] MEDS ORDERED: ENOXAPARIN INJ 40 MG/0.4 ML SYR SQ SCH (09:00)
[2019-02-12] MEDS ORDERED: PANTOprazole 40 MG TAB PO SCH (09:00)
[2019-02-12] MEDS ORDERED: ASPIRIN 81 MG ECTAB PO SCH (09:00)
[2019-02-12] MEDS ORDERED: CHOLECALCIFEROL 1,000 UNITS TAB PO SCH (09:00)
[2019-02-12] MEDS ORDERED: CHOLESTYRAMINE LIGHT 4 GM PKT PO SCH (10:00)
--- NOTE | 2019-02-12 10:22 | XRay Report ---
XR chest 1V portable CLINICAL HISTORY: Chest tube removal. COMPARISON STUDY: Chest radiograph February 12, 2019 at 6:50 AM. FINDINGS: The right chest tube has been removed. A small right pneumothorax with superior pleural sep aration of 8 mm is similar to prior exam. Right basilar opacity persists. Subcutaneous gas within the right chest wall and neck is noted. Cardiomediastinal silhouette is stable. There is no evidence for pulmonary edema. IMPRESSION: 1. No change in a small right pneumothorax following chest tube removal. 2. No change in right basilar opacity. Electronically signed by: Mo Garnica M.D. 02/12/2019 10:21 AM
[2019-02-12] MEDS: DOCUSATE SODIUM 100 MG CAP PO SCH (10:23)
[2019-02-12] MEDS: NORTRIPTYLINE HCL 10 MG CAP PO SCH (10:23)
[2019-02-12] MEDS: BRINZOLAMIDE (AZOPT) OPS 10 ML BTL OP SCH (10:24)
--- NOTE | 2019-02-12 10:24 | Anesthesiology Progress Note ---
Date of Service February 12, 2019 Anesthesia Post Procedure Vital Signs Vital Signs: Temp Pulse Pulse Resp BP BP Pulse Ox 02/12/19 07:01 36.8 C 80 16 106/71 95 02/12/19 05:25 93 02/12/19 05:15 36.8 C 82 18 113/73 90 02/12/19 01:15 36.8 C 77 16 110/70 91 02/11/19 23:15 37 C 83 18 123/69 92 02/11/19 21:11 36.8 C 85 18 125/79 93 02/11/19 19:20 36.4 C L 76 16 103/65 96 02/11/19 18:50 36.5 C 75 18 108/68 97 02/11/19 17:29 02/11/19 17:28 36.5 C 67 17 107/63 96 02/11/19 16:25 36.6 C 69 18 120/68 96 02/11/19 15:26 36.5 C 67 18 107/72 98 02/11/19 14:42 36.4 C L 66 16 102/62 96 02/11/19 14:15 36.4 C L 64 16 126/80 98 02/11/19 14:00 63 17 102/61 93 02/11/19 13:50 64 13 111/74 97 02/11/19 13:40 36.3 C L 63 15 115/63 96 02/11/19 13:30 64 15 107/64 96 02/11/19 13:20 62 22 116/66 97 02/11/19 13:10 62 17 120/78 98 02/11/19 13:00 62 32 H 134/70 95 02/11/19 12:50 60 24 100/66 98 02/11/19 12:44 35.7 C L 62 16 104/69 96 Pulse Ox 02/12/19 07:01 02/12/19 05:25 02/12/19 05:15 02/12/19 01:15 02/11/19 23:15 02/11/19 21:11 02/11/19 19:20 02/11/19 18:50 02/11/19 17:29 96 02/11/19 17:28 02/11/19 16:25 02/11/19 15:26 02/11/19 14:42 02/11/19 14:15 02/11/19 14:00 02/11/19 13:50 02/11/19 13:40 02/11/19 13:30 02/11/19 13:20 02/11/19 13:10 02/11/19 13:00 02/11/19 12:50 02/11/19 12:44 Pain Intensity Right Lateral Chest: Pain Intensity: 8 Notes Mental Status: alert / awake / arousable and participated in evaluation Patient Amnestic to Procedure: Yes Nausea / Vomiting: adequately controlled Pain: improving with treatment Airway Patency, RR, SpO2: stable & adequate BP & HR: stable & adequate Hydration State: stable & adequate Anesthetic Complications: no major complications apparent
--- NOTE | 2019-02-13 01:02 | Discharge Summary ---
DATE OF ADMISSION: 02/11/2019 DATE OF DISCHARGE: 02/12/2019 DISCHARGE DIAGNOSIS: Ground-glass opacity of right lower lobe. HOSPITAL COURSE: This is a 73-year-old female who is quite active actually who has a ground-glass opacity in her right lower lobe, which has gotten larger over the last few years. We discussed this in the office and she was quite concerned about it and wished to have it excised. On 02/11/2019, the patient was brought to the operating room and we did an uncomplicated electromagnetic navigational bronchoscopy with marking of this area with indocyanine green dye. I then turned the patient and inserted our scope. It was an extremely difficult case. She had multiple adhesions and it took us about 2 hours to take these down safely. We then turned her on the fluorescent light and you could see the area quite nicely. This was wedged out along with another large wedge resection a bit more lateral. This was then delivered off the field and no evidence of carcinoma was noted. For this reason, we closed. I did biopsy several lymph nodes. The patient did very well, did not have an air leak after surgery. Following morning, her x-ray showed some atelectasis but otherwise looked quite good. She had minimal drainage and no air leak. I removed her chest tube. Her incisions are clean. Post-chest tube removal x-ray looked better with better aeration in the right base. She has no pneumothorax. She was discharged home and will return next week to go over her final pathology.
[2019-02-13] MEDS ORDERED: PREMARIN VAG CRM 14 APPLN/30 GM TUBE PV SCH (09:00)
== END 2019-02-12 12:25 | disposition home health service (06) | DRG 165 ==
LOC: ASU 05:44 → 3N 12:29